=== PATIENT | male | born 1955 | race Caucasian/White ===

== ENCOUNTER 2020-08-13 09:09 | Outpatient (CLI) | payer OTHER, SELFPAY ==
--- NOTE | 2020-08-13 09:17 | XR_ITS ---
WS: [id number] PROCEDURE: XR chest 2V* [id number] CLINICAL INFORMATION: MALIGNANT NEOPLASM OF GLOTTIS COMPARISON: None. FINDINGS: Heart: Normal cardiac silhouette. Lungs: Moderate chronic erythematous changes. No acute pulmonary infiltrates. No focal pneumonia or p leural fluid. Bones: Normal visualized bony structures. XR/XR chest 2V* [id number] IMPRESSION: No acute chest findings.
== END 2020-08-13 09:10 | disposition home or self-care (01) ==
LOC: RADWPI 09:16
PROVIDERS: Family Provider Internal Medicine; PCP Internal Medicine; Visit Provider Specialist
DX: C32.0 Malignant neoplasm of glottis (principal)
CPT/HCPCS: 71046

== ENCOUNTER → 2021-08-18 18:21 | Outpatient (BNVA) | payer OTHER, SELFPAY | PROVIDERS: Family Provider Internal Medicine; PCP Internal Medicine; Visit Provider Registered Nurse Neonatal Intensive Care | DX: Z20.822 Contact with and (suspected) exposure to COVID-19 (principal) | CPT/HCPCS: 87635 ==

== ENCOUNTER → 2022-02-13 14:13 | Outpatient (BNVA) | payer OTHER, SELFPAY | PROVIDERS: Family Provider Internal Medicine; PCP Internal Medicine; Visit Provider Internal Medicine | DX: M25.551 Pain in right hip (principal) | CPT/HCPCS: 73502 ==

== ENCOUNTER → 2022-03-31 13:55 | Outpatient (BNVA) | payer OTHER, SELFPAY | PROVIDERS: Family Provider Internal Medicine; PCP Internal Medicine; Visit Provider Specialist | DX: C32.0 Malignant neoplasm of glottis (principal) | CPT/HCPCS: 71046 ==

== ENCOUNTER 2023-01-29 07:44 | Outpatient (CLI) | payer MEDICARE, OTHER, SELFPAY ==
[2023-01-29 08:03] VITALS: PULSE 52; RESP 18; O2SAT 97
[2023-01-29] MEDS: albuterol 2.5 mg/3 mL Neb INHALATION (08:03)
[2023-01-29 08:08] VITALS: PULSE 65
== END 2023-01-29 07:45 | disposition home or self-care (01) ==
PROVIDERS: PCP Internal Medicine; Visit Provider Internal Medicine
DX: R06.02 Shortness of breath (principal)
CPT/HCPCS: 94060; J7613

== ENCOUNTER 2023-02-14 10:02 | Outpatient (CLI) | payer MEDICARE, OTHER, SELFPAY ==
--- NOTE | 2023-02-14 11:22 | CT_ITS ---
WS: [id number] CT NECK WITH CONTRAST HISTORY: NEOPLASM, SKIN OF UNCERTAIN BEHAVIOR, history of vocal cord cancer. TECHNIQUE: Contiguous 5 mm axial images are performed through the neck with intravenous contrast. Sag ittal and coronal reformats are also submitted. All CT scans at [facility] use at least one o f these dose optimization techniques: automated exposure control; mA and/or kV adjustment per patient size (includes targeted exams where dose is matched to clinical indication); or iterative reconstruc tion. CONTRAST: CONTRAST: Omnipaque 350; 80 mL IV. DLP: 328.35 mGy.cm COMPARISON: 01/07/2013 Nasopharynx, oropharynx, hypopharynx and larynx are unremarkable. No soft tissue masses or abnormal e nhancement. No recurrent mass or abnormal enhancement. No vocal cord abnormality. Torus tubarius and fossa of Rosenmuller and parapharyngeal fat are normal. No significant lymphadenopathy is identified. Thyroid gland is difficult to visualize and probably atrophic. No history of thyroidectomy. Negative carotid glands. Reversal of normal cervical lordosis at C5-6. C4 anterolisthesis by 5 mm. Bilateral facet joint arthr itis and disc space narrowing. Anterolisthesis has significantly increased since 2012. Changes are al so significantly progressed since the MRI of 04/15/2013. Visualized portions of the skull base demonstrate no abnormalities. Orbits and globes are within norm al limits. No soft tissue masses. Visualized paranasal sinuses and mastoid air cells are normal. Lung apices are clear. CT/CT neck w con* [id number] IMPRESSION: 1. Negative CT neck. No recurrent mass along the true vocal cords. No adenopat hy. 2. Significant progression of C4 anterolisthesis and reversal normal cervical lordosis at C5-6 since 2012.
[2023-02-14 11:54] LABS: Blood Urea Nitrogen 16 mg/dL (8-23); Glomerular Filtration Rate 50.9 mL/min (90-130)
[2023-02-14] MEDS: iohexol 350 mg/mL 500 mL Btl (per mL) IV (12:21)
== END 2023-02-14 10:03 | disposition home or self-care (01) ==
LOC: RAD 10:07
PROVIDERS: PCP Internal Medicine; Visit Provider Internal Medicine
DX: D48.5 Neoplasm of uncertain behavior of skin (principal)
CPT/HCPCS: 70491; 82565; 84520; Q9967

== ENCOUNTER 2025-01-30 11:37 | Outpatient (CLI) | payer OTHER, MEDICARE, SELFPAY ==
--- NOTE | 2025-01-30 11:49 | XRR_ITS ---
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 ; Additional info: Pain in left wrist TECHNIQUE: Imaging protocol: Radiologic exam of the left wrist. Views: 3 or more views. COMPARISON: CR XR forearm LT 2V [id number] 01/30/2025 11:58 AM FINDINGS: Bones/joints: Minimally displaced intra-articular distal radius fracture. Minimally displaced ulnar styloid fracture. Soft tissues: Normal. XR/XR wrist LT min 3V* [id number] IMPRESSION: 1. Minimally displaced intra-articular distal radius fracture. 2. Minimally displaced ulnar styloid fracture.
--- NOTE | 2025-01-30 11:49 | XRR_ITS ---
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 ; Additional info: Pain in left arm TECHNIQUE: Imaging protocol: Radiologic exam of the left forearm. Views: 2 views. COMPARISON: CR XR wrist LT min 3V* [id number] 01/30/2025 11:58 AM FINDINGS: Bones/joints: Minimally displaced intra-articular distal radius fracture. Minimally displaced ulnar styloid fracture. Soft tissues: Normal. XR/XR forearm LT 2V [id number] IMPRESSION: 1. Minimally displaced intra-articular distal radius fracture. 2. Minimally displaced ulnar styloid fracture.
== END 2025-01-30 11:38 | disposition home or self-care (01) ==
LOC: RAD 11:44
PROVIDERS: PCP Internal Medicine; Visit Provider Internal Medicine
DX: S52.92XA Unspecified fracture of left forearm, initial encounter for closed fracture (principal); S52.612A Displaced fracture of left ulna styloid process, initial encounter for closed fracture; X58.XXXA Exposure to other specified factors, initial encounter
CPT/HCPCS: 73090; 73110

== ENCOUNTER → 2025-02-02 14:01 | Outpatient (BNVA) | payer MEDICARE, OTHER, SELFPAY | PROVIDERS: PCP Internal Medicine; Visit Provider Orthopaedic Surgery | DX: S62.102A Fracture of unspecified carpal bone, left wrist, initial encounter for closed fracture (principal); X58.XXXA Exposure to other specified factors, initial encounter | CPT/HCPCS: 73110 ==

== ENCOUNTER 2025-02-02 14:35 | Outpatient (CLI) | payer MEDICARE, OTHER, SELFPAY | END 2025-02-02 14:36 | disposition home or self-care (01) | LOC: SOT 14:40 | PROVIDERS: PCP Internal Medicine; Visit Provider Orthopaedic Surgery | DX: Z46.89 Encounter for fitting and adjustment of other specified devices (principal); S52.615D Nondisplaced fracture of left ulna styloid process, subsequent encounter for closed fracture with routine healing; W55.22XD Struck by cow, subsequent encounter | CPT/HCPCS: 99203; L3982 ==

== ENCOUNTER → 2025-02-23 08:43 | Outpatient (BNVA) | payer MEDICARE, OTHER, SELFPAY | PROVIDERS: PCP Internal Medicine; Visit Provider Orthopaedic Surgery | DX: S52.532D Colles' fracture of left radius, subsequent encounter for closed fracture with routine healing (principal); X58.XXXD Exposure to other specified factors, subsequent encounter | CPT/HCPCS: 73110; 99213 ==

== ENCOUNTER → 2025-03-16 07:43 | Outpatient (BNVA) | payer MEDICARE, OTHER, SELFPAY | PROVIDERS: PCP Internal Medicine; Visit Provider Orthopaedic Surgery | DX: S52.532D Colles' fracture of left radius, subsequent encounter for closed fracture with routine healing (principal); X58.XXXD Exposure to other specified factors, subsequent encounter | CPT/HCPCS: 73110; 99213 ==

== ENCOUNTER → 2025-04-27 07:55 | Outpatient (BNVA) | payer MEDICARE, OTHER, SELFPAY | PROVIDERS: PCP Internal Medicine; Visit Provider Orthopaedic Surgery | DX: S52.532D Colles' fracture of left radius, subsequent encounter for closed fracture with routine healing (principal); X58.XXXD Exposure to other specified factors, subsequent encounter | CPT/HCPCS: 73110; 99213 ==